=== PATIENT | female | born 1985 | race Caucasian/White ===

== ENCOUNTER 2019-10-15 11:34 | Inpatient (IN) | payer SELFPAY ==
[~2019-10-15] VITALS: Ht 162.6 cm; Wt 63.5 kg
[2019-10-15] MEDS ORDERED: SODIUM CHLORIDE 0.9% 1,000 ML IV ONE ×4 (11:40→21:45)
[2019-10-15 12:07] LABS: Nucleated Red Blood Cells % 0.1 %
[2019-10-15 12:09] LABS: Basophils # (auto) 0.1 uL; Eosinophils # (auto) 0.1 uL; Eosinophils % (auto) 1.8 % (0.0-7.0); Lymphocytes # (auto) 0.8 uL; Lymphocytes % (auto) 13.3 % (10.0-50.0); Mean Corpuscular Hemoglobin 14.3 pg (28.0-32.0); Mean Corpuscular Hgb Conc. 27.7 g/dL (32.0-36.0); Mean Corpuscular Volume 51.7 fL (80.0-100.0); Monocytes # (auto) 0.7 uL; Monocytes % (auto) 12.2 % (0.0-12.0); Neutrophils # (auto) 4.3 uL; Neutrophils % (auto) 71.7 % (37.0-80.0); Platelet Count (auto) 463 10^3/uL (140-450); Red Blood Cells 4.25 10^6/uL (4.0-5.20)
[2019-10-15 12:14] LABS: Red Cell Distribution Width 20.8 % (11.8-14.3)
[2019-10-15 12:16] LABS: Hemoglobin 6.1 g/dL (12.2-16.2)
[2019-10-15 12:39] LABS: Albumin 3.1 g/dL (3.4-5.0); Anion Gap 7 (5-15); Blood Urea Nitrogen 10 mg/dL (7-18); Carbon Dioxide 23 mmol/L (21-32); Chloride 106 mmol/L (98-107); Glucose 148 mg/dL (74-106); Potassium 3.9 mmol/L (3.5-5.1); Sodium 136 mmol/L (136-145)
[2019-10-15 12:41] LABS: Alanine Aminotransferase 288 U/L (13-56); Aspartate Aminotransferase 251 U/L (15-37); BUN/Creatinine Ratio 17.9; GFR African American 161 mL/min; GFR Non-African American 133 mL/min
[2019-10-15 12:46] LABS: Alkaline Phosphatase 134 U/L (45-117); Bilirubin, Total 0.2 mg/dL (0.2-1.0); Total Protein 7.2 g/dL (6.4-8.2)
[2019-10-15] MEDS ORDERED: SODIUM CHLORIDE 0.9% 1,000 ML IV SCH (14:38)
[2019-10-15] MEDS ORDERED: traMADol HCL 50 MG TAB PO PRN (14:45)
[2019-10-15] MEDS ORDERED: NITROGLYCERIN 0.4 MG SL TAB SL PRN (14:45)
[2019-10-15] MEDS ORDERED: DEXTROSE (50%) 50ML SYRG IV PRN (14:45)
[2019-10-15] MEDS ORDERED: MORPHINE SULF INJ 2 MG/ML SYRINGE 1ML IV PRN (14:45)
[2019-10-15] MEDS ORDERED: PROMETHAZINE HCL 25 MG/ML 1ML IV PRN (14:45)
[2019-10-15 15:16] LABS: INR 0.98 (0.9-1.15); Partial Thromboplastin Time 25.9 sec (23.64-32.05)
[2019-10-15 15:39] LABS: Urine Bacteria NONE SEEN /hpf (None Seen); Urine Blood 1+ /uL (Negative); Urine Mucus FEW (None Seen); Urine Specific Gravity 1.015 (1.001-1.035); Urine WBC 3 /hpf (0 - 5)
[2019-10-15 16:10] LABS: Alcohol, Urine < 3.0 mg/dL (0-5); Amphetamine Screen, Urine POSITIVE (NEGATIVE); Barbiturate Scree,Urine NEGATIVE (NEGATIVE); Benzodiazephine Screen, Urine NEGATIVE (NEGATIVE); Cannabinoid Screen, Urine NEGATIVE (NEGATIVE); Cocaine Screen, Urine NEGATIVE (NEGATIVE); Opiate Scree,Urine POSITIVE (NEGATIVE); Phencyclidine Screen, Urine NEGATIVE (NEGATIVE)
[2019-10-15 17:12] LABS: CRP High Sensitivity 0.22 mg/dL (< 0.3)
[2019-10-15] MEDS: ACCU-CHEK COMFORT CURVE STRIP VI SCH ×2 (18:13→23:32)
[2019-10-15 18:19] LABS: Hematocrit 19.5 % (36.0-46.0)
[2019-10-15 18:32] LABS: Hemoglobin 5.4 g/dL (12.2-16.2)
[2019-10-15] MEDS ORDERED: PANTOPRAZOLE 40 MG/10 ML VIAL INJ IV ONE (19:15)
[2019-10-15] MEDS ORDERED: NOREPINEPHRINE 8 MG/250ML KIT 250 ML IV SCH (19:15)
[2019-10-15] MEDS: SODIUM CHLORIDE 0.9% 1,000 ML IV SCH (20:18)
[2019-10-15] MEDS ORDERED: ACETAMINOPHEN 325 MG TAB PO PRN (21:30)
[2019-10-15] MEDS ORDERED: VANCOMYCIN PER PHARMACY 0 MG IV SCH ×2 (21:30→22:00)
[2019-10-15 21:32] VITALS: BP 101/53
[2019-10-15 21:47] VITALS: BP 100/56
[2019-10-15] MEDS ORDERED: VANCOMYCIN 1GM/250ML 250 ML IV ONE ×2 (22:00)
[2019-10-15] MEDS ORDERED: cefTRIAXone 1GM/50ML D5W 50 ML IV ONE (22:00)
[2019-10-15] MEDS: PANTOPRAZOLE 40 MG TAB PO SCH (22:51)
[2019-10-15 23:42] VITALS: BP 100/63
[2019-10-16 00:40] LABS: Hematocrit 21.2 % (36.0-46.0)
[2019-10-16 00:45] LABS: Hemoglobin 6.1 g/dL (12.2-16.2)
[2019-10-16 02:08] VITALS: BP 105/66
[2019-10-16] MEDS: SODIUM CHLORIDE 0.9% 1,000 ML IV SCH ×2 (02:10→08:22)
[2019-10-16 02:23] VITALS: BP 99/58
[2019-10-16 03:00] VITALS: BP 105/62
[2019-10-16 03:58] VITALS: BP 103/65
[2019-10-16 06:13] LABS: Basophils # (auto) 0.1 uL; Eosinophils # (auto) 0 uL; Eosinophils % (auto) 0.3 % (0.0-7.0); Hemoglobin 7.5 g/dL (12.2-16.2); Monocytes # (auto) 0.6 uL; Monocytes % (auto) 4.7 % (0.0-12.0); Nucleated Red Blood Cells % 0.1 %
[2019-10-16 06:15] LABS: Potassium 3.9 mmol/L (3.5-5.1)
[2019-10-16 06:16] LABS: Basophils % (auto) 0.4 % (0.0-2.0); Hematocrit 24.6 % (36.0-46.0); Lymphocytes # (auto) 5.2 uL; Lymphocytes % (auto) 43.1 % (10.0-50.0); Mean Corpuscular Hemoglobin 17.7 pg (28.0-32.0); Mean Corpuscular Hgb Conc. 30.3 g/dL (32.0-36.0); Mean Corpuscular Volume 58.3 fL (80.0-100.0); Neutrophils # (auto) 6.2 uL; Neutrophils % (auto) 51.5 % (37.0-80.0); Platelet Count (auto) 398 10^3/uL (140-450); Red Blood Cells 4.22 10^6/uL (4.0-5.20)
[2019-10-16 06:24] LABS: Albumin 2.7 g/dL (3.4-5.0); BUN/Creatinine Ratio 11.5; Bilirubin, Total 1.3 mg/dL (0.2-1.0); Total Protein 6.2 g/dL (6.4-8.2)
[2019-10-16] MEDS: ACCU-CHEK COMFORT CURVE STRIP VI SCH ×2 (06:52→12:05)
[2019-10-16] MEDS ORDERED: cefTRIAXone 1GM/50ML D5W 50 ML IV SCH (09:00)
[2019-10-16] MEDS: PANTOPRAZOLE 40 MG TAB PO SCH (10:01)
[2019-10-16] MEDS ORDERED: VANCOMYCIN 1GM/250ML 250 ML IV SCH (11:00)
[2019-10-16 13:46] VITALS: BP 120/68
[2019-10-17 10:19] LABS: Hepatitis B Surface Antibody Negative
[2019-10-17 10:57] LABS: Hepatitis A Total Antibody Negative
[2019-10-17 13:09] LABS: Hepatitis B Core Total AB Negative; Hepatitis B Surface Antigen Negative (Negative)
[2019-10-17 13:14] LABS: Hepatitis C Antibody Positive (Negative)
== END 2019-10-16 14:12 | disposition home or self-care (01) | DRG 917 ==
LOC: EDBD 11:34 → EDUNIT# 11:34 → ER 11:34 → TELE 11:35
PROVIDERS: ADMIT Internal Medicine; ATTEND Internal Medicine
PROC: 30233N1 Transfusion of Nonautologous Red Blood Cells into Peripheral Vein, Percutaneous Approach (ICD-10-PCS; principal; 2019-10-15)
DX: T40.1X1A Poisoning by heroin, accidental (unintentional), initial encounter (principal); G93.41 Metabolic encephalopathy; N39.0 Urinary tract infection, site not specified; E86.0 Dehydration; N92.0 Excessive and frequent menstruation with regular cycle; F11.90 Opioid use, unspecified, uncomplicated; D64.9 Anemia, unspecified; R73.9 Hyperglycemia, unspecified; D47.3 Essential (hemorrhagic) thrombocythemia; D63.8 Anemia in other chronic diseases classified elsewhere; Y92.89 Other specified places as the place of occurrence of the external cause; Z86.19 Personal history of other infectious and parasitic diseases
CPT/HCPCS: 36415; 71045; 76705; 76856; 80053; 80307; 80329; 81001; 81025; 82150; 82378; 82962; 83036; 83516; 83615; 83690; 84484; 85014; 85018; 85025; 85045; 85610; 85652; 85730; 86141; 86225; 86235; 86704; 86706; 86708; 86803; 86850; 86870; 86900; 86901; 86920; 86922; 87040; 87340; 93005; 96360; 96361; C9113; G0378; J0696

== ENCOUNTER 2022-07-27 19:04 | Emergency (ER) | payer MEDICAID ==
[2022-07-27 19:17] VITALS: BP 135/85
== END 2022-07-27 19:17 | disposition left against medical advice (07) ==
LOC: EDBD 19:04 → ER 19:05
DX: T40.1X1A Poisoning by heroin, accidental (unintentional), initial encounter (principal); Z53.21 Procedure and treatment not carried out due to patient leaving prior to being seen by health care provider; Y92.89 Other specified places as the place of occurrence of the external cause

== ENCOUNTER 2023-02-06 01:46 | Emergency (ER) | payer MEDICAID ==
[~2023-02-06] VITALS: Ht 162.6 cm; Wt 56.2 kg
[2023-02-06 01:54] VITALS: BP 129/90
[2023-02-06 02:52] LABS: Urine Bacteria NONE SEEN /hpf (None Seen); Urine Blood Negative /uL (Negative); Urine Mucus FEW (None Seen); Urine Specific Gravity 1.028 (1.001-1.035); Urine WBC 3 /hpf (0 - 5)
== END 2023-02-06 06:25 | disposition left against medical advice (07) ==
LOC: ER 01:46
DX: O26.892 Other specified pregnancy related conditions, second trimester (principal); R10.9 Unspecified abdominal pain; Z3A.14 14 weeks gestation of pregnancy; Z53.21 Procedure and treatment not carried out due to patient leaving prior to being seen by health care provider
CPT/HCPCS: 81001; 81025